=== PATIENT | male | born 1945 | race Asian ===

== ENCOUNTER 2023-06-15 08:47 | Emergency (ER) | payer OTHER, SELFPAY ==
[2023-06-15 09:06] VITALS: BP 107/60
--- NOTE | 2023-06-15 09:47 | ED.GENMED ---
History of Present Illness
<Kayleigh Caceres PA-C - Last Filed: 06/15/23 16:53>
General
Chief Complaint: Fever
Source: patient and family (daughter at bedside)
Exam Limitations: none and other (not chinese speaking)
Time Seen by Provider: 06/15/23 09:26
Nursing documentation reviewed up to this point in time: agreed with
Travel History
Have you had any contact with someone who has COVID-19?: No
Do you have any symptoms of coronavirus? Fever > 100 degrees, chills, cough, shortness of breath, sore throat, loss of taste or smell, muscle aches, or headache?: No
History of Present Illness
History of Present Illness:
Patient is an 78-year-old male with history atrial fibrillation on Xarelto, hypertension, diabetes, asthma presenting for evaluation of fever in the setting of known COVID infection. Patient is non-Kazakh speaking but his daughter translated at
bedside. She states that 4 days ago he started not feeling well and was found to have a fever. He tested positive for COVID at home. His did have COVID last week. He endorses fever, body aches, sore throat, dry cough, mild shortness of
breath and occasional diarrhea. He denies any chest pain, nausea or vomiting. Patient's daughter has been giving him Tylenol over the past 2 days to control fever -Tmax of 100.5 F this morning. Patient last received Tylenol 2 hours ago.
Patient is fully vaccinated for COVID with multiple booster shots. This is his first time that he has had COVID that they know of.
They called his primary care doctor who stated that they would not treat him with Paxlovid due to medication interactions.
Past History
<Kayleigh Caceres PA-C - Last Filed: 06/15/23 16:53>
Past History
ED Past Medical History: Arrthythmia (Atrial fibrillation), HTN, Hypercholesterolemia and IDDM
Social History
Tobacco: Former smoker
Alcohol: Occasional
Drug: None
Living: with family
Phy Exam
<Kayleigh Caceres PA-C - Last Filed: 06/15/23 16:53>
Physical Exam
Physical Exam:
General: In no apparent distress and non-toxic
Vitals: Vital signs stable, afebrile
HEENT: Atraumatic, normocephalic; pupils equal round and reactive to light bilaterally, posterior pharynx mildly erythematous with no tonsillar exudates or edema, protecting airway, moist mucous membranes
Neck: appears supple, no meningeal signs
CV: Regular rate and rhythm, heart sounds normal, no evidence of cyanosis
Resp: No evidence of respiratory distress, breath sounds slightly diminished without any wheezing, rales; O2 saturation 96 on room air
Abd: Soft, nontender in all 4 quadrants, non-distended
Extremities: No deformities, no evidence of cyanosis or edema; DP pulses palpable bilaterally
Neuro: alert and oriented; grossly intact
Psych: Normal affect
Skin: Intact, no rashes
Course
<Kayleigh Caceres PA-C - Last Filed: 06/15/23 16:53>
Orders/Labs/Results
Orders:
Orders
06/15/23 09:56
Ipratropium/Albuterol Sulfate [Duoneb] 3 ml INH R NOW STA
06/15/23 10:19
CR Chest - 2 Views Urgent
Comment:
Reason For Exam: covid +, shortness of breath
Vital Signs
Initial and Last Documented VS:
Initial Vital Signs
Temp Pulse Resp BP Pulse Ox
99.1 F 68 18 107/60 94
06/15/23 09:06 06/15/23 09:06 06/15/23 09:06 06/15/23 09:06 06/15/23 09:06
Last Documented Vital Signs
Temp Pulse Resp BP Pulse Ox
99.1 F 78 21 104/52 95
06/15/23 12:00 06/15/23 12:00 06/15/23 11:22 06/15/23 10:09 06/15/23 12:00
<Ruiz Rothman DO - Last Filed: 06/15/23 10:20>
Orders/Labs/Results
Orders:
Orders
06/15/23 09:56
Ipratropium/Albuterol Sulfate [Duoneb] 3 ml INH R NOW STA
06/15/23 10:19
CR Chest - 2 Views Urgent
Comment:
Reason For Exam: covid +, shortness of breath
Vital Signs
Initial and Last Documented VS:
Initial Vital Signs
Temp Pulse Resp BP Pulse Ox
99.1 F 68 18 107/60 94
06/15/23 09:06 06/15/23 09:06 06/15/23 09:06 06/15/23 09:06 06/15/23 09:06
Last Documented Vital Signs
Temp Pulse Resp BP Pulse Ox
99.1 F 78 21 104/52 95
06/15/23 12:00 06/15/23 12:00 06/15/23 11:22 06/15/23 10:09 06/15/23 12:00
<Kayleigh Caceres PA-C - Last Filed: 06/15/23 16:53>
MDM/Problems Addressed
Differential Diagnosis Includes:
COVID, bronchitis, pneumonia, asthma exacerbation
MDM/Problems Addressed:
Patient is an 78-year-old male with history asthma A-fib, hypertension, diabetes presenting for evaluation of fever in the setting of known COVID infection. Symptoms started about 4 days ago and patient's daughter reports Tmax of 100.1, dry cough,
sore throat, body aches. Patient denies any true chest pain or shortness of breath. Patient is fully vaccinated for COVID. Patient has a temp of 99.1 on arrival to emergency department. Otherwise vital signs stable O2 saturation of 94 on room
air. Physical exam as document above. He is relatively well-appearing, nontoxic-appearing, heart rate regular rate and rhythm. Breath sounds slightly diminished bilaterally without any wheezing, crackles. He does not appear to be in any
respiratory distress. Will check chest x-ray. Will give a DuoNeb. Anticipate discharge with supportive care and primary care follow-up.
Patient reports feeling better after DuoNeb. Temperature remains at 99.1.
Initial read of chest x-ray shows no evidence of acute cardiopulmonary process.
Patient remains stable in emergency department. Stable for discharge with Tylenol for fever, supportive care, primary care follow-up. Will discharge with albuterol inhaler to use as needed for cough/shortness of breath. Patient and patient's
daughter comfortable this plan. All questions answered.
Chronic conditions affecting care:
Atrial fibrillation on Xarelto and flecainide, hypertension, diabetes, as
Acute Exacerbation and/or Progression of Chronic Illness:
Acute COVID exacerbation
<Kayleigh Caceres PA-C - Last Filed: 06/15/23 16:53>
*Radiology
Radiology exam reviewed: preliminary read by ED provider
*Pulse Oximetry
Patient hypoxic: no
*EKG
Interpreted by ED Provider?: NA
*Procedure Rn Interpretation
Rate: normal
Interpretation: normal
Heart Rate: 70
Rhythm: sinus
*Critical Care Note
Total Time (30-74mins, 75-104mins- exclusive of procedures): Not Applicable
ED Attending Note
<Kayleigh Caceres PA-C - Last Filed: 06/15/23 16:53>
-
Portions of this chart may have been created with voice recognition software.� Occasional wrong word or��sound alike� substitutions may have occurred due to the inherent limitations of voice recognition software.
<Ruiz Rothman DO - Last Filed: 06/15/23 10:20>
ED Attending Note
Patient seen and examined by attending physician: Yes
I performed the substantive portion of visit, reviewed & personally made and approve the management plan that is documented in note by myself or AIDEE.: Yes
ED Attending Note:
Seen with BLANKING PRESS OPERATOR examined independently 78-year-old male diabetic asthmatic with COVID fever
Getting in will check chest x-ray looks nontoxic
Discharge Plan
Departure
Patient Disposition: Home (Routine Discharge)
Date of Disposition: 06/15/23
Time of Disposition: 11:54
Patient with high blood pressure during this ER visit?: No
Condition: Good
Covid-19: Confirmed COVID-19
Discharge Problem:
COVID
Instructions: COVID-19 (DC)
Prescriptions:
New
albuterol sulfate [ProAir HFA] 90 mcg/actuation HFA aerosol inhaler
See Rx Instructions .ROUTE .COMPLEX PRN (Reason: shortness of breath) Qty: 8.5 0RF
Rx Instructions:
1 puff inhaled as needed ;1 puff Q4-6 hours PRN shortness of breath or cough
No Action
losartan 50 MG tablet
50 mg PO DAILY
flecainide 50 MG tablet
50 mg PO BID
metoprolol succinate [Toprol XL] 25 MG tablet extended release 24 hr
37.5 mg PO DAILY
ergocalciferol (vitamin D2) 50,000 UNITS capsule
50,000 units PO WESA
metformin 500 MG tablet extended release 24 hr
500 mg PO TID @ 0800,1200,1700 Qty: 0 0RF
Xarelto 20 MG tablet
20 mg PO QPM Qty: 0 0RF
Hold Instructions: Resume on 11/11/21.
atorvastatin 10 mg Tablet
10 mg PO QPM
Apidra SoloStar U-100 Insulin 100 unit/mL Insulin Pen
18 unit SC BID
Referrals:
Erma Flower CRNP [Family Provider] - Follow up in 5-7 days
Activity Restrictions/Additional Instructions:
- Return to the emergency department with any high fevers, chest pain, shortness of breath, difficulty breathing, low pulse ox at home, coughing up blood, worsening in current symptoms, or any other concerns
-A prescription has been sent to your pharmacy for an inhaler. You can use this every 4-6 hours as needed for shortness of breath/cough
-You should continue to take Tylenol as needed for fever. You can take Tylenol 650 mg every 4-6 hours as needed for fever. You should not exceed 4000 mg/day
-Is important to stay well-hydrated. Maintain good diet
-You should follow-up with your primary care provider in the next 5 to 7 days to ensure symptoms improving.
Interventions
Interventions:
*Risk Screen - Suicide Last Done: 06/15/23 09:06
*General Assessment Last Done: 06/15/23 09:06
*Neglect/Abuse Screening Last Done: 06/15/23 09:06
ED- Fall Risk Assessment Last Done: 06/15/23 10:12
*ED COVID-19 Vaccine History Last Done: 06/15/23 10:12
*Nursing Disposition Last Done: 06/15/23 12:00
ED- Neurological Assessment Last Done: 06/15/23 10:12
ED-Skin Assessment Last Done: 06/15/23 10:12
Discharge Date and Time
Discharge Date/Time: 06/15/23 12:00
[2023-06-15] MEDS: DUONEB 3 ML INH (10:03)
[2023-06-15 10:09] VITALS: BP 104/52
== END 2023-06-15 12:00 | disposition home or self-care (01) ==
LOC: EMR 08:47
PROVIDERS: EMERGENCY PHYSICIAN Emergency Medicine; FAMILY PHYSICIAN Nurse Practitioner Family
DX: U07.1 COVID-19 (principal); I10 Essential (primary) hypertension; E11.9 Type 2 diabetes mellitus without complications; J45.901 Unspecified asthma with (acute) exacerbation; I48.91 Unspecified atrial fibrillation; Z87.891 Personal history of nicotine dependence
CPT/HCPCS: 99284; 94640; 71046

== ENCOUNTER → 2023-06-26 11:25 | Outpatient (REF) | payer OTHER, SELFPAY | LOC: RAD 11:25 | PROVIDERS: ATTENDING PHYSICIAN Family Medicine | DX: J40 Bronchitis, not specified as acute or chronic (principal) | CPT/HCPCS: 71046 ==

== ENCOUNTER 2023-11-14 09:53 | Emergency (ER) | payer OTHER, SELFPAY ==
[2023-11-14] VITALS (8 sets, daily range): BP systolic 106–130; BP diastolic 49–67
[2023-11-14 10:29] LABS: % Basophils 0.6 % (0-2); % Eosinophils 2.2 % (0-6); % Immature Granulocytes 0.3 % (0-0.5); % Lymphocytes 21.1 % (20.5-51.1); % Monocytes 6.9 % (1.7-9.3); % Neutrophils 68.9 % (42.2-75.2); Absolute Basophils 0.1 10^3/uL (0-0.2); Absolute Eosinophils 0.2 10^3/uL (0-0.7); Absolute Lymphocytes 1.7 10^3/uL (1.2-3.4); Absolute Monocytes 0.5 10^3/uL (0.1-0.6); Absolute Neutrophils 5.4 10^3/uL (1.4-6.5); Hematocrit 41.6 % (39.0-52.0); Hemoglobin 14.8 g/dL (13.0-18.0); Mean Corp Hgb Conc. 35.6 g/dL (33.0-37.0); Mean Corpuscular Hgb 33.5 pg (27.0-31.0); Mean Corpuscular Volume 94.1 fL (80.0-94.0); Mean Platelet Volume 10.2 fL (7.4-10.4); Nucleated Red Blood Cells % 0 % (-); Platelet Count 185 10^3/uL (130-400); Red Blood Cell Count 4.42 10^6/uL (4.70-6.10); Red Cell Dist. Width 12.8 % (11.5-14.5); White Blood Cell Count 7.8 10^3/uL (4.8-10.8)
[2023-11-14 11:03] LABS: Blood Urea Nitrogen 19 mg/dl (9-20); Calcium 9.3 mg/dl (8.4-10.2); Carbon Dioxide 15 mmol/L (22-30); Chloride 110 mmol/L (98-107); Glucose 261 mg/dl (70-99); Sodium 137 mmol/L (135-145); Troponin I 0.014 ng/ml; eGFR > 60.00
--- NOTE | 2023-11-14 11:29 | ED.GENMED ---
History of Present Illness
General
Chief Complaint: Chest Pain
Time Seen by Provider: 11/14/23 10:57
History of Present Illness
History of Present Illness:
Patient is a 78-year-old male with history of A-fib on metoprolol flecainide Xarelto, hypertension, hyperlipidemia, diabetes, thyroid abnormality presenting to the emergency department with palpitations. Patient's daughter is at bedside Jerome most
of the history. She states that for the past 3 days and having palpitation shortness of breath and chest pain. Heart rate has been in the 120s at home. Did take extra metoprolol as per the mix crusher operator. Given I was ongoing mix crusher operator advised
him to come to the emergency department. While he was here he did spontaneously convert. He is completely asymptomatic at this time. No fevers chills. No cough congestion. No chest pain difficulty breathing currently. No leg swelling.
Past History
Past History
ED Past Medical History: Arrthythmia (Atrial fibrillation), HTN, Hypercholesterolemia and IDDM
Social History
Tobacco: Former smoker
Alcohol: Occasional
Drug: None
Living: with family
Phy Exam
Physical Exam
Physical Exam:
GENERAL: in no acute distress
HEENT: normocephalic, extraocular movements intact, moist oral mucosa
NECK: normal inspection
RESPIRATORY: no respiratory distress, clear to auscultation bilaterally
CARDIOVASCULAR: regular rate and rhythm
ABDOMEN/: soft, non-distended, non-tender to palpation, no rebound or guarding
EXTREMITIES: non-tender, no edema/swelling
NEUROLOGIC: awake and alert, moves all extremities
SKIN: warm
Scores
Heart Score for Chest Pain Patients
STEMI patient?: Not applicable
Course
Orders/Labs/Results
Orders:
Orders
11/14/23 09:55
EKG [Electrocardiogram (*1)] Urgent
Reason for Study: Bradycardia / Tachycardia
EKG- Treatment ONCE
11/14/23 10:17
Basic Metabolic Panel Urgent
Complete Blood Count/With Diff Urgent
Troponin I Urgent
11/14/23 11:01
EKG [Electrocardiogram (*1)] Urgent
Reason for Study: Abnormal EKG
EKG- Treatment ONCE
11/14/23 11:29
Add On- LAB Urgent
Tests Added?: magnesium
11/14/23 12:22
CR Chest - 2 Views Urgent
Comment:
Reason For Exam: sob
11/14/23 13:37
Magnesium Urgent
Potassium Urgent
Troponin I Urgent
11/14/23 14:14
Add On- LAB Urgent
Tests Added?: Potassium
11/14/23 14:35
Add On- LAB Stat
Tests Added?: Potassium
Abnormal Lab Results
11/14/23
10:17
RBC 4.42 L 10^6/uL
(4.70-6.10)
MCV 94.1 H fL
(80.0-94.0)
MCH 33.5 H pg
(27.0-31.0)
Chloride 110 H mmol/L
(98-107)
Carbon Dioxide 15 L mmol/L
(22-30)
Glucose 261 H mg/dl
(70-99)
11/14/23 10:17
11/14/23 14:11
Vital Signs
Initial and Last Documented VS:
Initial Vital Signs
Temp Pulse Resp BP Pulse Ox
97.8 F 100 18 130/49 96
11/14/23 10:05 11/14/23 10:05 11/14/23 10:05 11/14/23 10:05 11/14/23 10:05
Last Documented Vital Signs
Temp Pulse Resp BP Pulse Ox
97.8 F 71 20 106/66 93
11/14/23 10:05 11/14/23 14:45 11/14/23 14:45 11/14/23 14:00 11/14/23 14:45
MDM/Problems Addressed
Differential Diagnosis Includes:
78-year-old man with history of A-fib on flecainide metoprolol Xarelto, hypertension, hyperlipidemia, diabetes, thyroid abnormality presented to the emergency department with A-fib that is now converted. Vitals here notable for heart rate in the
60s. On the monitor he is in normal sinus rhythm. Initial EKG per my interpretation is consistent with a flutter. However repeat EKG does show normal sinus rhythm. There is subtle depression in V2. Will discuss with cardiology. Patient is
currently in normal sinus rhythm. Unclear the etiology I will check blood work for metabolic derangement. Does not seem consistent with infection or stress. No alcohol or drug use. He has not missed any doses. Daughter does state that he
occasionally has a few days a month where he is in A-fib however it has never lasted this long.
*Critical Care Note
Total Time (30-74mins, 75-104mins- exclusive of procedures): Not Applicable
Update Note
Update Note:
On reevaluation patient remains in normal sinus rhythm. He is currently asymptomatic. Blood work is otherwise reassuring. His bicarb is 15. There is no anion gap. Unclear etiology as he has not been having any diarrhea or excessive IV fluids
for renal injury. Patient's daughter will follow with PCP for repeat blood work. He otherwise appears well in no acute distress so dose appropriate for discharge. Regarding the atrial flutter that is now resolved with EKG changes I did discuss
with cardiology who is amenable to discharge. Delta troponin is negative. Strict return precautions given
ED Attending Note
-
Portions of this chart may have been created with voice recognition software.� Occasional wrong word or��sound alike� substitutions may have occurred due to the inherent limitations of voice recognition software.
Discharge Plan
Departure
Patient Disposition: Home (Routine Discharge)
Date of Disposition: 11/14/23
Time of Disposition: 14:58
Patient with high blood pressure during this ER visit?: No
Discharge Problem:
Atrial fibrillation
Prescriptions:
No Action
losartan 50 MG tablet
50 mg PO DAILY
flecainide 50 MG tablet
50 mg PO BID
metoprolol succinate [Toprol XL] 25 MG tablet extended release 24 hr
37.5 mg PO DAILY
ergocalciferol (vitamin D2) 50,000 UNITS capsule
50,000 units PO WESA
metformin 500 MG tablet extended release 24 hr
500 mg PO TID @ 0800,1200,1700 Qty: 0 0RF
Xarelto 20 MG tablet
20 mg PO QPM Qty: 0 0RF
atorvastatin 10 mg Tablet
10 mg PO QPM
Apidra SoloStar U-100 Insulin 100 unit/mL Insulin Pen
18 unit SC BID
albuterol sulfate [ProAir HFA] 90 mcg/actuation HFA aerosol inhaler
See Rx Instructions .ROUTE .COMPLEX PRN (Reason: shortness of breath) Qty: 8.5 0RF
Rx Instructions:
1 puff inhaled as needed ;1 puff Q4-6 hours PRN shortness of breath or cough
Referrals:
Erma Flower CRNP [Family Provider] -
Activity Restrictions/Additional Instructions:
You were seen in the Emergency Department today for . Atrial fibrillation while you were here we performed blood work, which was reassuring. Please make sure you follow-up with a mix crusher operator to have your medications adjusted. Please follow-up
with a primary care doctor for repeat blood work to evaluate your bicarb level as it was slightly low.
We would like for you to follow up with your primary care physician for further evaluation. If you experience fever, worsening of your symptoms, or develop any other new or concerning symptoms, please return to the Emergency Department immediately.
Please see the attached sheet for additional information.
Interventions
Interventions:
*Risk Screen - Suicide Last Done: 11/14/23 11:04
*General Assessment Last Done: 11/14/23 10:05
*Neglect/Abuse Screening Last Done: 11/14/23 11:04
*ED COVID-19 Vaccine History Last Done: 11/14/23 10:05
ED- Cardiac Assessment Last Done: 11/14/23 11:04
Discharge Date and Time
Print Language: JAPANESE
[2023-11-14 14:04] LABS: Magnesium 2.1 mg/dl (1.6-2.3)
[2023-11-14 14:16] LABS: Troponin I < 0.012 ng/ml
[2023-11-14 14:50] LABS: Potassium 4.9 mmol/L (3.5-5.1)
== END 2023-11-14 13:18 | disposition home or self-care (01) ==
LOC: EMR 09:53
PROVIDERS: Emergency Medicine; EMERGENCY PHYSICIAN Student in an Organized Health Care Education/Training Program; FAMILY PHYSICIAN Nurse Practitioner Family
DX: R07.89 Other chest pain (principal); I48.91 Unspecified atrial fibrillation; E78.00 Pure hypercholesterolemia, unspecified; E11.9 Type 2 diabetes mellitus without complications; I10 Essential (primary) hypertension; Z87.891 Personal history of nicotine dependence
CPT/HCPCS: 99283; 71046; 80048; 83735; 84132; 84484; 85025; 93005

== ENCOUNTER → 2023-12-06 09:30 | Outpatient (REF) | payer OTHER, SELFPAY | LOC: HWRCS 09:30 | PROVIDERS: ATTENDING PHYSICIAN Nuclear Medicine Nuclear Cardiology; FAMILY PHYSICIAN Nurse Practitioner Family | DX: I10 Essential (primary) hypertension (principal); I48.0 Paroxysmal atrial fibrillation; I45.10 Unspecified right bundle-branch block; I08.0 Rheumatic disorders of both mitral and aortic valves; E78.5 Hyperlipidemia, unspecified | CPT/HCPCS: 93306 ==

== ENCOUNTER → 2024-04-14 07:24 | Outpatient (REF) | payer OTHER, SELFPAY | LOC: DHCBC/DCA 07:24 | PROVIDERS: ATTENDING PHYSICIAN Nuclear Medicine Nuclear Cardiology; FAMILY PHYSICIAN Nurse Practitioner Family | DX: I48.0 Paroxysmal atrial fibrillation (principal); E11.9 Type 2 diabetes mellitus without complications; I45.10 Unspecified right bundle-branch block; R07.89 Other chest pain; M79.602 Pain in left arm; R42 Dizziness and giddiness | CPT/HCPCS: 78452; 93017; A9500; J2785 ==

== ENCOUNTER 2024-04-17 09:26 | Day surgery (SDC) | payer OTHER, SELFPAY | END 2024-04-17 10:10 | disposition home or self-care (01) | LOC: CATH 09:26 | PROVIDERS: ATTENDING PHYSICIAN Internal Medicine Cardiovascular Disease; FAMILY PHYSICIAN Nurse Practitioner Family; OTHER PHYSICIAN Nuclear Medicine Nuclear Cardiology | DX: I48.91 Unspecified atrial fibrillation (principal); Z53.09 Procedure and treatment not carried out because of other contraindication; I45.10 Unspecified right bundle-branch block; I10 Essential (primary) hypertension; E78.00 Pure hypercholesterolemia, unspecified; E11.9 Type 2 diabetes mellitus without complications; Z87.891 Personal history of nicotine dependence | CPT/HCPCS: 93005 ==

== ENCOUNTER → 2024-05-15 09:10 | Outpatient (REF) | payer OTHER, SELFPAY | LOC: DHSLP 09:10 | PROVIDERS: ATTENDING PHYSICIAN Nuclear Medicine Nuclear Cardiology; FAMILY PHYSICIAN Nurse Practitioner Family | DX: G47.00 Insomnia, unspecified (principal); R06.83 Snoring | CPT/HCPCS: 95810 ==

== ENCOUNTER 2024-06-30 05:52 | Day surgery (SDC) | payer OTHER, SELFPAY ==
[2024-06-23 11:10] VITALS: BMI 29.3
[2024-06-23 11:38] LABS: % Basophils 0.5 % (0-2); % Eosinophils 3.6 % (0-6); % Immature Granulocytes 0.3 % (0-0.5); % Lymphocytes 26.1 % (20.5-51.1); % Neutrophils 60.5 % (42.2-75.2); Absolute Eosinophils 0.2 10^3/uL (0-0.7); Absolute Lymphocytes 1.7 10^3/uL (1.2-3.4); Absolute Monocytes 0.6 10^3/uL (0.1-0.6); Absolute Neutrophils 3.8 10^3/uL (1.4-6.5); Hematocrit 39.6 % (39.0-52.0); Hemoglobin 13.1 g/dL (13.0-18.0); Mean Corp Hgb Conc. 33.1 g/dL (33.0-37.0); Mean Corpuscular Hgb 33.1 pg (27.0-31.0); Mean Platelet Volume 10.2 fL (7.4-10.4); Nucleated Red Blood Cells % 0 % (-); Platelet Count 172 10^3/uL (130-400); Red Blood Cell Count 3.96 10^6/uL (4.70-6.10); Red Cell Dist. Width 13.3 % (11.5-14.5); White Blood Cell Count 6.3 10^3/uL (4.8-10.8)
[2024-06-23 11:49] LABS: INR 1.28; PT 16.3 Sec (11.4-14.6)
[2024-06-23 11:57] LABS: ALT (SGPT) 21 U/L (0-50); AST (SGOT) 23 U/L (17-59); Albumin 4.7 g/dl (3.5-5.0); Alkaline Phosphatase 72 U/L (38-126); Blood Urea Nitrogen 22 mg/dl (9-20); Calcium 9.6 mg/dl (8.4-10.2); Carbon Dioxide 24 mmol/L (22-30); Chloride 108 mmol/L (98-107); Estimated Creatinine Clearance 50 ml/min; Glucose 99 mg/dl (70-99); Magnesium 2.1 mg/dl (1.6-2.3); Potassium 5.1 mmol/L (3.5-5.1); Sodium 145 mmol/L (135-145); Total Bilirubin 0.6 mg/dl (0.2-1.3); eGFR > 60.00
[2024-06-30] VITALS (19 sets, daily range): BP systolic 114–137; BP diastolic 50–65; BMI 29.8
[2024-06-30 06:45] LABS: Glucose - Point of Care 115 mg/dl (70-99)
--- NOTE | 2024-06-30 07:20 | ITS.CL.ABL ---
Emt P - Ablation
Ablation
Procedure Report:
ELECTROPHYSIOLOGIC STUDY AND POSSIBLE ABLATION
DATE: June 30, 2024
Primary Care Provider: Erma Flower NP
Primary General Administrator: Dr Chino Priest
INDICATION:
Symptomatic Atrial Fibrillation.
Paroxysmal
HISTORY: See H and P.
Symptomatic AF, poorly controlled with attempted medical therapy.
He is referred from Dr. Chino Priest regarding symptomatic paroxysmal atrial fibrillation. He was referred for electrophysiologic consultation.
He did not tolerate increasing Flecainide to 100 mg BID. He felt he went back into aFib this am. He has had some left arm pain. Dizzy today in AFib.�Overall he has had increasing symptom burden/progressive symptoms related to atrial fibrillation
over the past year despite increasing dosage of antiarrhythmic drug therapy.
HAS-BLED: 1
Age
CHADSVASc: 2
Age
PRESENTING RHYTHM: SR
HISTORY: See H and P.
Symptomatic AF, poorly controlled with attempted medical therapy.
ANTIARRHYTHMIC DRUG: Flecainide 50 mg twice daily stopped 3 days ago
ANTICOAGULATION: Rivaroxaban 20 mg daily
'TIME-OUT': called and confirmed.
SEDATION/ANESTHESIA: provided via the anesthesia department using general anesthesia.
PROCEDURE:
Ultrasound Guidance with real-time visualization of needle insertion and vessel patency performed by ga for femoral venous Vascular Access.
Under real-time US guidance, the needle was advanced with negative pressure into the vein. The needle was seen entering the vessel lumen with a good return of dark red flow, the syringe was removed, non-pulsatile, dark red blood low was noted and
the wire was passed without difficulty, then the needle was removed. US confirmed the wire was in the vein, not going into an artery,
Images were taken and saved for the patient's permanent record. Imaging findings typical femoral venous anatomy. Direct visualization of needle puncture into the femoral vein was observed and recorded.
A decapolar CS catheter was placed within the CS for mapping and pacing.
The intracardiac ultrasound catheter was positioned in the RA for continuous intracardiac ultrasound imaging.
Heparin bolus and infusion to target ACT at 300 -350 seconds was administered. Transseptal puncture was performed. This entailed advancing a sheath with dilator into the superior vena cava and withdrawing both (monitoring intracardiac ultrasound,
fluoroscopy and tip pressure) with the tip oriented toward the atrial septum. The fossa ovalis was engaged (indicated by sudden displacement of the sheath tip as well as tenting of the fossa seen on intracardiac ultrasound).
Transseptal puncture was performed. Left atrial catheter position was confirmed by echocardiographic imaging, pressure monitoring (LA mean pressure 16 mm Hg) and fluoroscopy. The sheath was advanced over the dilator and positioned in the left
atrium.
The [employer] multipolar mapping/ablation Sphere-9 catheter was positioned through the transseptal sheath for high density mapping.
Geometry and voltage mapping was performed using the [employer] mapping system for three-dimensional electroanatomical mapping.
Catheter positioning was guided and confirmed using both I.C.E. and fluoroscopy.
PV isolation approach was used to electrically isolate each PV ostia (LSPV, LIPV, RSPV, RIPV).
Additional energy applications/additional ablation set was required to accomplish wide area circumferential ablation around each of the pulmonary vein sets and additionally ablation to accomplish LA posterior wall ablation.
Remapping with the Sphere-9 catheter found that all PVPs were eliminated at each vein demonstrating entrance block. Also pacing around the the circumference of the ostia was performed at 10 ma and 2.0 msec output to assess for exit block. This
demonstrated electrical isolation at each of the pulmonary vein ostia (LSPV, LIPV, RSPV, RIPV). There is also entrance and exit block at the LA posterior wall.
Programmed electrostimulation failed to induce any sustained arrhythmias.
I.C.E. :
Pre-Ablation Post-Ablation
LVEF: 55 % 55 %
WMA: none none
Pericardial effusion: none none
COMPLICATIONS:
SUMMARY:
- Mapping and ablation to isolate the PVs
- Additional AF ablation set after PVI.
- 3-D Electroanatomical Mapping
- Intracardiac Ultrasound
- Ultrasound guidance for vascular access
Post ablation, I discussed today's findings and results with the patient's daughter, Brigida
RECOMMENDATIONS:
- Observe in monitored bed.
- Maintain oral anticoagulation.
- Discontinue flecainide
- Office visit with Roxanne De Souza NP is scheduled for 01/09/2025
- Continue cardiovascular care with Dr Priest
Copy to:
Erma Flower NP
Dr Chino Priest
[2024-06-30 08:37] LABS: ACT-LR - POC 384 Seconds (116-155)
[2024-06-30 08:43] LABS: Glucose - Point of Care 120 mg/dl (70-99)
[2024-06-30 08:54] LABS: ACT-LR - POC 395 Seconds (116-155)
--- NOTE | 2024-06-30 13:55 | W.PN.UPDATE ---
Update Note
Progress Note Update
Pt seen post PFA. Right groin site without ht/bleeding, oob ambulating, urinating without difficulty. Post EKG NSR w/1st deg AVB/RBBB as before, no acute changes. Resume xarelto tonight at usual time. Will discontinue flecainide and continue other
meds as before. Followup at [facility] as scheduled. Home today if groin site/tele remain stable.
== END 2024-06-30 14:00 | disposition home or self-care (01) ==
LOC: CATH 05:52
PROVIDERS: ATTENDING PHYSICIAN Internal Medicine Cardiovascular Disease; FAMILY PHYSICIAN Nurse Practitioner Family; OTHER PHYSICIAN Nuclear Medicine Nuclear Cardiology
DX: I48.0 Paroxysmal atrial fibrillation (principal); J44.9 Chronic obstructive pulmonary disease, unspecified; E11.9 Type 2 diabetes mellitus without complications; E78.5 Hyperlipidemia, unspecified; I10 Essential (primary) hypertension; Z79.4 Long term (current) use of insulin; N40.0 Benign prostatic hyperplasia without lower urinary tract symptoms; Z87.891 Personal history of nicotine dependence; R91.1 Solitary pulmonary nodule; Z79.899 Other long term (current) drug therapy; Z79.84 Long term (current) use of oral hypoglycemic drugs; Z79.01 Long term (current) use of anticoagulants
CPT/HCPCS: C1766; C1730; C1894; C1733; 36415; 75572; 76937; 80053; 82962; 83735; 85025; 85347; 85610; 86850; 86900; 86901; 93005; 93656; 93657; C1892; Q9967